=== PATIENT | male | born 1995 | race Caucasian/White ===

== ENCOUNTER 2016-06-20 03:11 | Emergency (ER) | payer MEDICAID ==
[~2016-06-20] VITALS: Ht 177.8 cm; Wt 108.9 kg
[2016-06-20 03:11] VITALS: BP 144/89
[2016-06-20] MEDS ORDERED: IBUPROFEN 400 MG TABLET ONE (03:54)
[2016-06-20] MEDS ORDERED: DEXAMETHASONE SOD PHOSPHATE 10 MG/ML VIAL ONE (03:55)
[2016-06-20] MEDS ORDERED: DEXAMETHASONE SOD PHOSPHATE 4 MG/ML VIAL IV ONE (04:00)
[2016-06-20] MEDS ORDERED: IBUPROFEN 400 MG TABLET PO ONE (04:00)
== END 2016-06-20 04:43 | disposition home or self-care (01) ==
LOC: ER 03:16
DX: J02.9 Acute pharyngitis, unspecified (principal); J06.9 Acute upper respiratory infection, unspecified
CPT/HCPCS: A4606; J1100; Z7610